=== PATIENT | male | born 1955 | race Caucasian/White ===

== ENCOUNTER → 2023-12-04 07:23 | Outpatient (REF) | payer MEDICARE, BC, SELFPAY | LOC: DHCBC/DCA 07:23 | PROVIDERS: ATTENDING PHYSICIAN Internal Medicine Cardiovascular Disease; FAMILY PHYSICIAN Family Medicine | DX: I49.3 Ventricular premature depolarization (principal); I10 Essential (primary) hypertension; E78.2 Mixed hyperlipidemia; R94.31 Abnormal electrocardiogram [ECG] [EKG] | CPT/HCPCS: 78452; 93017; A9500; J2785 ==

== ENCOUNTER → 2025-02-07 13:47 | Outpatient (REF) | payer MEDICARE, BC, SELFPAY | LOC: RCS 13:47 | PROVIDERS: ATTENDING PHYSICIAN Internal Medicine Cardiovascular Disease; FAMILY PHYSICIAN Family Medicine | DX: I49.3 Ventricular premature depolarization (principal) | CPT/HCPCS: 93306 ==

== ENCOUNTER 2025-02-16 01:27 | Inpatient (IN) | payer MEDICARE, BC, SELFPAY ==
[2025-02-15 20:28] VITALS: BP 119/69
[2025-02-15] MEDS: TYLENOL 1000 MG PO (21:03)
[2025-02-15 21:11] LABS: Hematocrit 47.5 % (39.0-52.0); Hemoglobin 15.8 g/dL (13.0-18.0); Mean Corp Hgb Conc. 33.3 g/dL (33.0-37.0); Mean Corpuscular Volume 89.0 fL (80.0-94.0); Platelet Count 219 10^3/uL (130-400); Red Cell Dist. Width 13.5 % (11.5-14.5)
[2025-02-15 21:20] LABS: Urine Character Clear (Clear)
[2025-02-15 21:25] LABS: COVID-19 Antigen Negative (Negative)
[2025-02-15 21:27] LABS: Urine Red Blood Cell 0-2 /HPF (0-2); Urine Squamous Cell 0-2 /LPF (Few); Urine White Cell 16-20 /HPF (0-5)
[2025-02-15 21:28] LABS: ALT (SGPT) 27 U/L (0-50); AST (SGOT) 23 U/L (17-59); Albumin 4.5 g/dl (3.5-5.0); Alkaline Phosphatase 67 U/L (38-126); Blood Urea Nitrogen 15 mg/dl (9-20); Calcium 9.4 mg/dl (8.4-10.2); Carbon Dioxide 21 mmol/L (22-30); Chloride 103 mmol/L (98-107); Glucose 246 mg/dl (70-99); Potassium 4.5 mmol/L (3.5-5.1); Sodium 136 mmol/L (135-145); Total Protein 7.2 g/dl (6.3-8.2); eGFR > 60.00
[2025-02-15 21:44] LABS: Nucleated Red Blood Cells % 0 % (-)
[2025-02-15 22:23] VITALS: BP 118/62
[2025-02-15] MEDS: ROCEPHIN 2000 MG IV (22:40)
[2025-02-15 22:44] VITALS: BMI 25.8
[2025-02-15 23:00] VITALS: BP 107/59
--- NOTE | 2025-02-15 23:33 | ED.GENMED ---
History of Present Illness
General
Chief Complaint: Fatigue
Source: patient
Time Seen by Provider: 02/15/25 22:16
Nursing documentation reviewed up to this point in time: agreed with
History of Present Illness
History of Present Illness:
Note:
CHIEF COMPLAINT(S)
Chills, shakiness, frequent urination, and elevated body temperature.
HISTORY OF PRESENT ILLNESS
The patient is a 69-year-old male with a history of primary biliary cholangitis (PBC) and diabetes mellitus who presented with sudden onset chills and shivering. The symptoms began this afternoon after the patient awoke from a nap feeling very cold,
despite applying blankets. Additionally, the patient reported shakiness, unsteadiness while walking, and a newly developed urinary frequency with an inability to control urination. The patient indicated a lack of fever prior to arrival in the
emergency department, where a fever of 102.6�F was recorded and treated with acetaminophen. The patient�s daughter, an emergency physician, expressed concern about the possibility of a cardiac-related issue due to these symptoms. The patient also
experienced an unusual elevation in blood glucose levels despite not having eaten since the morning.
Upon further evaluation, a diagnosis of a urinary tract infection was suspected, supported by the presence of bacteremia indicated by a threefold increase in the white blood cell count. The patient denied the use of steroids and had no history of
urinary tract infections, although reports of blood presence in the urine were confirmed today. The patient takes insulin for diabetes management. Concerns of progressing to sepsis were raised. The patient is scheduled for evaluations of the
bladder, liver, and kidneys, including imaging and possible cystoscopy in the coming days. Diagnostic imaging to rule out nephrolithiasis was planned.
PAST MEDICAL AND SURGICAL HISTORY
Primary biliary cholangitis (PBC), diabetes mellitus, enlarged prostate.
ADDITIONAL HISTORY OBTAINED FROM SOURCE OTHER THAN THE PATIENT
Per the patients daughter, an emergency physician, there was initial concern about the symptoms being cardiac-related and the risk of the patient becoming septic. She advised calling emergency medical services to prevent potential falls.
CHRONIC MEDICAL CONDITIONS SIGNIFICANTLY AFFECTING CARE
- Primary biliary cholangitis (PBC)
- Diabetes mellitus
SOCIAL DETERMINANTS AFFECTING HEALTH
The patient receives support from a daughter who is an emergency physician, providing insights and recommendations regarding his health management. No additional social determinants impacting health were discussed.
ALLERGIES
The patient reported no known allergies.
MEDICATIONS
- Insulin for diabetes management.
REVIEW OF SYSTEMS
- General: Very tired this afternoon, chills, shaking.
- Genitourinary: Frequent urination and loss of bladder control.
- Endocrine: Elevated blood glucose today despite normal eating habits.
PHYSICAL EXAM
General: Alert, no acute distress.
Skin: Warm, dry.
Head: Normocephalic, atraumatic.
Neck: Supple, trachea midline.
Eye, ears, nose, mouth, and throat: Oral mucosa moist.
Cardiovascular: Normal peripheral perfusion, no edema.
Respiratory: Respirations are non-labored.
Gastrointestinal: Abdomen non-distended.
Back: Normal range of motion, normal alignment.
Musculoskeletal: Normal range of motion, normal strength.
Neurological: Alert and oriented to person, place, time, and situation. No focal neurological deficit observed.
Psychiatric: Cooperative, appropriate mood & affect.
PROBLEM LIST
- Acute: Urinary tract infection with bacteremia, possible progressing sepsis.
- Chronic: Primary biliary cholangitis, diabetes mellitus.
PLAN
- Initiate intravenous antibiotics.
- Admit for overnight observation to monitor vital signs and response to treatment.
- Conduct a CT scan of the abdomen to evaluate for possible nephrolithiasis.
- Monitor blood pressure and blood glucose levels closely.
- The patient should refrain from taking PBC medication tonight, with management continuing based on hospital protocols.
- Ensure continuation of insulin therapy during the hospital stay.
DIFFERENTIAL DIAGNOSIS
The Differential Diagnosis includes, in no particular order and is not limited to:
1. Urinary tract infection with bacteremia
2. Nephrolithiasis
3. Sepsis
4. Pyelonephritis
5. Prostatitis
6. Diabetes-related complications
7. Drug-induced fever
8. Viral infection
9. Acute kidney injury
10. Heart failure exacerbation
Disposition:
SUMMARY OF ENCOUNTER
The patient, a 69-year-old male, presented with symptoms of chills, shakiness, frequent urination, and elevated body temperature. The chief concern was the potential development of sepsis. Upon evaluation, the laboratory findings revealed
leukocytosis with a white blood cell count of 28,000, indicating possible bacteremia. A CT scan confirmed cystitis and severe prostatitis. Given these findings, the patient was started on ceftriaxone due to suspected urosepsis.
DISPOSITION
Admit
ASSESSMENT
The patient is suspected to have urosepsis secondary to cystitis and severe prostatitis, as indicated by the CT scan and laboratory findings.
EMERGENCY TREATMENTS ADMINISTERED
The patient was started on intravenous ceftriaxone.
MANAGEMENT OF THE PATIENTS CARE WAS DISCUSSED WITH
The hospitalist was informed of the patient�s condition, diagnosis, and the plan for admission.
PLAN
The patient is to be admitted for urosepsis management, initiate intravenous antibiotic therapy, and closely monitor vital signs and laboratory parameters.
INDEPENDENT REVIEW OF LABS AND INTERPRETATION OF TESTS
My independent review of the CBC indicates leukocytosis with a white blood cell count of 28,000.
My independent interpretation of the CT scan confirms cystitis and severe prostatitis.
MEDICATION RECONCILIATION
Ceftriaxone (Rocephin) was initiated in the emergency department.
MEDICAL DECISION MAKING
- Number and Complexity of Problems Addressed: Chronic conditions affecting care include primary biliary cholangitis, diabetes mellitus. Differential diagnoses considered include urinary tract infection with bacteremia, nephrolithiasis, sepsis,
pyelonephritis, prostatitis, diabetes-related complications.
- Data:
Category 1:
Clinical information obtained from an independent historian, with details provided by the patients daughter, an emergency physician.
Category 2:
My independent interpretation of the CT scan confirms cystitis and severe prostatitis.
Category 3:
Discussion of management with the hospitalist regarding the patients admission for urosepsis.
- Risk: The decision to admit the patient was made considering the risk of complications from urosepsis including possible sepsis, given the leukocytosis and CT findings.
DIAGNOSIS
- Urosepsis [ICD-10: A41.9]
- Cystitis [ICD-10: N30.00]
- Prostatitis [ICD-10: N41.9]
Past History
Past History
ED Past Medical History: Psychiatric (Depression) and Other (Psoriasis)
ED Past Surgical History: None
Social History
Tobacco: Non-smoker
Personal: Single
Living: with family
Employment: Student
Phy Exam
Physical Exam
Physical Exam:
.
Sepsis
Sepsis Screening
Sepsis Assessment: Sepsis
Sepsis Screen
Sepsis Screen: Sepsis
Date: 02/16/25
Time: 22:53
Course
Orders/Labs/Results
Orders:
Orders
02/15/25 20:34
Electrocardiogram (*1) Urgent
Reason for Study: Fatigue / Weakness
02/15/25 20:35
EKG- Treatment ONCE
02/15/25 20:55
COVID-19 Antigen Urgent
Source: Nasal Swab
Complete Blood Count/With Diff Urgent
Comprehensive Metabolic Panel Urgent
Lactic Acid Urgent
Urinalysis Reflex To Culture Urgent
Date Specimen was Collected: 02/15/25
Time Specimen was Collected: 20:35
Urine Microscopic Reflex Cult Urgent
Blood Culture Urgent
BENJAMIN Source: Blood/Venous
Specimen Description:
Influenza A+B Rapid Molecular Urgent
BENJAMIN Source: Nasal Swab
Specimen Description:
Date Specimen was Collected: 02/15/25
Time Specimen was Collected: 20:35
Urine Culture Urgent
BENJAMIN Source: U
Specimen Description:
Date Specimen was Collected: 02/15/25
Time Specimen was Collected: 20:35
02/15/25 21:01
Acetaminophen [Tylenol] 1,000 mg .ROUTE .STK-MED ONE
02/15/25 21:03
Acetaminophen [Tylenol] 1,000 mg PO NOW STA
02/15/25 22:29
CT Abd/pel Without Iv Or Oral Urgent
Comment:
Reason For Exam: hematuria, fever, elev wbc
CefTRIAXone [Rocephin] 2,000 mg IV NOW STA
02/15/25 23:45
Lactic Acid Q4H
Comment: CANCEL 2nd LACTIC ACID IF 1st LACTIC ACID IS LESS THAN 2
02/16/25 01:08
0.9% Sodium Chloride 1000 ml [Nss] 1,000 ml IV BOLUS
0.9% Sodium Chloride 250 ml [Nss] 250 ml IV BOLUS
02/16/25 01:11
Admit/Transfer Patient As Directed
Co-Sign Provider:
Level of Care: Inpatient admission
Assign to:: Medical/Surgical
Physician / Group: Michel
Diagnosis: urosepsis
Reason for Hospitalization: urosepsis
Expected length of stay greater than two midnights?: Yes
ELOS- Estimated Length of Stay in days: 2
I certify the patient meets the requirements for IP care: Yes
PRN Pain Medication Management As Directed
May give lesser potent ordered pain med per pt: Yes
preference::
Protocol:: Medication orders for pain may be administered in a
manner that supports deferring to patient preference
when the pt is:
- Requesting an ordered lesser potent pain medication.
Least to most potent pain medications are defined
as: acetaminophen < NSAID < tramadol < opioids
(morphine, oxycodone, hydromorphone).
- Requesting a lesser dose of the same medication IF
ORDERED.
- Requesting a less intrusive route of administration
if both routes are prescribed by the provider (PO <
IV).
02/16/25 01:12
Code Status As Directed
Resuscitation Status: Full Code
02/16/25 02:00
Flush (0.9% Sodium Chloride) [Flush (Nss)] See Dose Instructions IV PER PROTOCOL
02/16/25 04:23
Acetaminophen [Tylenol] 650 mg PO Q4HPRN PRN
Bisacodyl [Dulcolax] 10 mg RECTAL [id number] PRN
Dextrose 50%-Water [Dextrose 50% Syringe] 12.5 grams IV [id number] PRN
Docusate W/Senna [Senokot-S] 1 tablet PO BIDPRN PRN
Glucagon [GlucaGen] 1 mg IM PRN PRN
HYDROmorphone [Dilaudid] 0.5 mg IV Q4HPRN PRN
Polyethylene Glycol Powder [Miralax] 17 grams PO DAILYPRN PRN
02/16/25 04:23
Activity As Directed
Activity Level: With Assistance
Bedside Glucose Monitoring As Directed
Frequency: AC&HS
Additional Instructions:: Change to q6h if pt on TPN, tube feeding or not eating
Vital Signs As Directed
Frequency: Per unit guidelines
Pulse Ox/spot Check [RESP] Routine
Quantity: 1
DX Deep Vein Thrombosis Video Routine
02/16/25 Breakfast
1800 calorie (15 carb) Diabetic
At Your Request: Full Participation
Levothyroxine [Synthroid] 175 mcg PO DAILY @ 0600
02/16/25 06:22
Basic Metabolic Panel IN AM
Complete Blood Count/No Diff IN AM
02/16/25 07:30
Insulin Aspart Corrective Low [Novolog Flexpen-Low Resistance] See Protocol SC AC
02/16/25 08:00
Atorvastatin [Lipitor] 10 mg PO DAILY
Dapagliflozin [Farxiga] 10 mg PO DAILY
Diltiazem Sustained Release [Cardizem Sr] 120 mg PO BID
Duloxetine Delayed Release [Cymbalta Delayed Release] 60 mg PO DAILY
Flecainide [Tambocor] 150 mg PO BID
Insulin Aspart/Asp Protamine [Novolog Mix 70/30 Flexpen] 7 units SC BID@0800,1700
02/16/25 18:00
Enoxaparin Sodium [Lovenox] 40 mg SC QPM
02/16/25 22:00
CefTRIAXone [Rocephin] 2,000 mg IV Q24H
Abnormal Lab Results
02/15/25
20:55
WBC 28.1 H 10^3/uL
(4.8-10.8)
MPV 11.1 H fL
(7.4-10.4)
Abs Immat Gran (auto) 0.3 H 10^3/uL
(0-0.05)
Absolute Neuts (auto) 25.4 H 10^3/uL
(1.4-6.5)
Absolute Lymphs (auto) 0.5 L 10^3/uL
(1.2-3.4)
Absolute Monos (auto) 1.9 H 10^3/uL
(0.1-0.6)
Immature Gran % 1.0 H %
(0-0.5)
Neutrophils % 90.5 H %
(42.2-75.2)
Lymphocytes % 1.6 L %
(20.5-51.1)
Carbon Dioxide 21 L mmol/L
(22-30)
Glucose 246 H mg/dl
(70-99)
Urine Ketones 3+ A
(Negative)
Leukocyte Esterase Rfl 2+ A
(Negative)
Urine WBC (Reflex) 16-20 A /HPF
(0-5)
Urine Bacteria (Reflex) Moderate A
(Negative)
Urine Glucose 4+ A
(Negative)
Urine Albumin (Reflex) 1+ A
(Neg - Trace)
02/15/25 20:55
02/15/25 20:55
Vital Signs
Initial and Last Documented VS:
Initial Vital Signs
Temp Pulse Resp BP Pulse Ox
102.6 F H 112 22 119/69 95
02/15/25 20:28 02/15/25 20:28 02/15/25 20:28 02/15/25 20:28 02/15/25 20:28
Last Documented Vital Signs
Temp Pulse Resp BP Pulse Ox
98.9 F 89 18 121/70 99
02/16/25 15:15 02/16/25 15:15 02/16/25 15:15 02/16/25 15:15 02/16/25 15:15
*Pulse Oximetry
SaO2: 95
Oxygen Mode of Delivery: Room air
Patient hypoxic: no
*Critical Care Note
Total Time (30-74mins, 75-104mins- exclusive of procedures): Not Applicable
ED Attending Note
-
Portions of this chart may have been created with voice recognition software.� Occasional wrong word or��sound alike� substitutions may have occurred due to the inherent limitations of voice recognition software.
Discharge Plan
Departure
Patient Disposition: Admit
Date of Disposition: 02/15/25
Time of Disposition: 23:34
Presentation/result/management discussed w/ accepting MD/DO: Hospitalist
Discharge Problem:
urosepsis
Interventions
Interventions:
*Risk Screen - Suicide Last Done: 02/16/25 09:43
*General Assessment Last Done: 02/15/25 20:32
*Neglect/Abuse Screening Last Done: 02/15/25 22:33
*ED- Fall Risk Assessment Last Done: 02/16/25 01:15
*ED COVID-19 Vaccine History Last Done: 02/16/25 09:43
*ED Influenza Vaccine History Last Done: 02/15/25 20:32
*Nursing Disposition Last Done: 02/16/25 07:58
Discharge Date and Time
Discharge Date/Time: 02/16/25 07:58
[2025-02-16] VITALS (7 sets, daily range): BP systolic 115–128; BP diastolic 62–70; BMI 25.7
--- NOTE | 2025-02-16 00:40 | HPS.HSE ---
Family Physician
-
Family Physician: Emil Brown
Chief Complaint
-
Weakness
History of Present Illness
69-year-old male with past medical history of primary biliary cholangitis, diabetes and BPH. Presenting to the emergency department with rigors and chills that began suddenly.
Apparently arose this a.m. with feeling cold despite the application of blankets. He reported shakiness and unsteadiness with walking. He then developed urinary frequency and some incontinence. He did not measure his temperature prior to arrival
in the emergency department but did not feel he had a fever. He has persistently elevated blood glucoses despite not eating in AM.
In the emergency department he had a temp of one 2.6, blood pressure was 124/62 with a pulse of 88 and was satting 97% on room air.
ECG shows sinus tachycardia at 101.
White count was 28 with a left shift, hemoglobin and platelets were normal. Lactic acid was 1.6. Electrolytes were normal. BUN/creatinine were normal. Glucose was 240.
COVID test was negative. Influenza test was negative.
UA was markedly positive for leukocyte esterase bacteria and WBCs. CT of the abdomen showed acute cystitis and severe prostate enlargement.
Medical History
Past Medical History
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
Past Surgical History: Reports Other (Skin resection for melanoma 1 year ago)
Social History
Tobacco: Non-smoker
Alcohol: Occasional
Drug: None
Personal:
Living: With Family
Employment: Retired
Family History
Family History: Not pertinent
Allergies / Home Medications
Allergies reflects when Allergies were last updated in [employer].
Home Medications with original date entered in [employer]
Allergy/Medication List:
Allergies
Allergy/AdvReac Type Severity Reaction Status Date / Time
No Known Allergies Allergy Verified 02/15/25 20:34
Home Medications
atorvastatin 10 mg tablet 10 mg PO DAILY 02/16/25
dapagliflozin propanediol 10 mg tablet (Farxiga) 10 mg PO DAILY 02/16/25
diltiazem HCl 120 mg capsule,extended release 12 hr 120 mg PO BID 02/16/25
duloxetine 60 mg capsule,delayed release 60 mg PO DAILY 02/16/25
flecainide 100 mg tablet mg 02/16/25
flecainide 150 mg tablet 150 mg PO BID 02/16/25
insulin NPH isoph U-100 human 100 unit/mL subcutaneous suspension (Novolin N NPH U-100 Insulin isophane) unit SC 02/16/25
insulin aspart U-100 100 unit/mL subcutaneous solution 02/16/25
levothyroxine 175 mcg tablet (Synthroid) mcg 02/16/25
metformin 500 mg tablet 500 mg PO DAILY 02/16/25
tamsulosin 0.4 mg capsule 0.4 mg PO HS 02/16/25
Review of Systems
-
Constitutional: Reports Chills
EENT: Reports No Symptoms
Respiratory: Reports No Symptoms
Cardiac: Reports No Symptoms
Abdomen/GI: Reports No Symptoms
: Reports Dysuria, Frequency and Incontinence
Musculoskeletal: Reports No Symptoms
Skin: Reports No Symptoms
Neurological: Reports No Symptoms
Endocrine: Reports No Symptoms
Hematologic/Lymphatic: Reports No Symptoms
Psych: Reports No Symptoms
Physical Exam
Vital Signs
Vital Signs
Temp Pulse Resp BP Pulse Ox
102.6 F H 85 13 124/62 97
02/15/25 20:28 02/16/25 00:15 02/16/25 00:15 02/16/25 00:12 02/16/25 00:15
Physical Exam
General: Well Developed, Well Nourished and No Apparent Distress
HEENT: NormoCephalic, Moist mucous membranes and Atraumatic
Respiratory: Clear
Cardiac: S1/S2 and Regular Rhythm; No Murmur or Rub
GI: Soft, Non Tender, Non Distended and Normal Bowel Sounds; No Organomegaly
Rectal: Deferred by Provider
Musculoskeletal: No Clubbing, No Cyanosis and No Edema
Skin: No Rash
Neuro: Nonfocal/grossly intact
Laboratory Results
-
02/15/25 20:55
02/15/25 20:55
Laboratory Results
Lactic Acid 1.6 mmol/L (0.7-2.0) 02/15/25 20:55
Total Bilirubin 0.9 mg/dl (0.2-1.3) 02/15/25 20:55
AST 23 U/L (17-59) 02/15/25 20:55
ALT 27 U/L (0-50) 02/15/25 20:55
Alkaline Phosphatase 67 U/L (38-126) 02/15/25 20:55
Data Reviewed
-
CT Scan: Report Reviewed by me
Medical Tests (Nuc Med, Echo, EKG etc): Image Personally Visualized and interpreted
Lab Data: Labs Reviewed by me
Impression/Plan
-
IMPRESSION:
69-year-old with a history of BPH, PVCs, hyperlipidemia, insulin-dependent diabetes presents to the emergency department with chills rigors urinary frequency and fever and found to have positive urinalysis. Febrile here with leukocytosis to 28. CT
consistent with acute cystitis and prostatomegaly, no nephrolithiasis, no obstruction. Reports despite history of BPH patient has not been started on tamsulosin pending severity of symptoms which for now reported to be mild. He does have
tamsulosin but is not currently taking it. In the ED he was febrile podiatry minimal dynamically stable. Lactic acid is negative. Other infectious workup was negative.
PLAN:
Acute cystitis with sepsis. HD stable.
- admit to med/surg
-Blood and urine culture sent
-Will bolus with crystalloids 30 cc per cake now
-Continue IV ceftriaxone 2 g for now
- Monitor hemodynamics
-Hold parameters on antihypertensives.
PVCs
-Continue diltiazem 120 mg p.o. twice daily with hold parameters
-Continue flecainide 150 mg p.o. twice daily
Diabetes
-Hold metformin
-Continue insulin 70/30 mixture at 10 units twice daily AC
-Sliding scale insulin
Hypothyroid
-Continue levothyroxine 175 mcg's daily
DVT prophylaxis�Lovenox subcu
CODE STATUS�full code
[2025-02-16] MEDS: NSS 250 IV (01:15)
[2025-02-16] MEDS: NSS 1000 IV (01:15)
[2025-02-16] MEDS: SYNTHROID 175 MCG PO (06:17)
[2025-02-16 06:36] LABS: Hematocrit 40.1 % (39.0-52.0); Hemoglobin 13.6 g/dL (13.0-18.0); Mean Corp Hgb Conc. 33.9 g/dL (33.0-37.0); Mean Corpuscular Volume 87.6 fL (80.0-94.0); Platelet Count 141 10^3/uL (130-400); Red Cell Dist. Width 13.4 % (11.5-14.5)
--- NOTE | 2025-02-16 07:10 | W.PN.HOSP.TC ---
Today's Communication/Plan
-
Doing better
Continue antibiotics, AM labs, follow cultures, added Finasteride, Bladder Scans
See plan
Assessment / Plan
Assessment / Plan
Physical Exam
General: Well Developed, Well Nourished and No Apparent Distress
HEENT: NormoCephalic, Moist mucous membranes and Atraumatic
Respiratory: Clear
Cardiac: S1/S2 and Regular Rhythm; No Murmur or Rub
GI: Soft, Non Tender, Non Distended and Normal Bowel Sounds; No Organomegaly
Rectal: Deferred by Provider
Musculoskeletal: No Clubbing, No Cyanosis and No Edema
Skin: No Rash
Neuro: Nonfocal/grossly intact
Assessment/Plan
69-year-old male with past medical history of primary biliary cholangitis, diabetes and BPH, presented to the emergency department with rigors and chills that began suddenly. Also reported urinary frequency and some incontinence. He did not measure
his temperature prior to arrival in the emergency department but did not feel he had a fever. He has persistently elevated blood glucoses despite not eating in AM.
UA was markedly positive for leukocyte esterase bacteria and WBCs. CT of the abdomen showed acute cystitis and severe prostate enlargement.
Presentation with Significant Chills, Urinary Frequency and Urinary Incontinence
Acute cystitis with sepsis
Leukocytosis
-Was not taking Flomax outpatient despite BPH?
-Follow blood and urine cultures
-Continue IV ceftriaxone 2 g daily for now
History of BPH
-Sees Dr. Rosen outpatient
-Start Finasteride as per my curbside discussion with Dr. Rosen
PVCs
-Continue diltiazem 120 mg p.o. twice daily with hold parameters
-Continue flecainide 150 mg p.o. twice daily
Diabetes Mellitus
-Hold metformin
-Continue insulin 70/30 mixture at 10 units twice daily AC
-Sliding scale insulin
Hypothyroid
-Continue levothyroxine 175 mcg's daily
Hyperlipidemia
DVT Prophylaxis�Lovenox subq
CODE STATUS�full code
Anticipated Discharge: 24 - 48 hours
Subjective/Interval History
-
Date of Service: February 16, 2025
Patient was seen and examined. He reported doing better this morning, compared to when he came in. No fever.
Objective Data
-
Labs:
Laboratory Results
02/15/25 02/16/25
20:55 06:22
WBC 28.1 H 26.5 H
Hgb 15.8 13.6
Hct 47.5 40.1
Plt Count 219 141 D
Sodium 136 Pending
Potassium 4.5 Pending
Chloride 103 Pending
Carbon Dioxide 21 L Pending
BUN 15 Pending
Creatinine 1.0 Pending
Glucose 246 H Pending
Calcium 9.4 Pending
Total Bilirubin 0.9
AST 23
ALT 27
Alkaline Phosphatase 67
Vital Signs:
Vital Signs
Temp Pulse Resp BP Pulse Ox
102.6 F H 84 10 128/62 96
02/15/25 20:28 02/16/25 01:15 02/16/25 01:15 02/16/25 01:12 02/16/25 01:15
--- NOTE | 2025-02-16 07:21 | EDRN ---
this RN completed the pts medication reconciliation with the pt
[2025-02-16 07:35] LABS: Blood Urea Nitrogen 15 mg/dl (9-20); Calcium 8.6 mg/dl (8.4-10.2); Carbon Dioxide 22 mmol/L (22-30); Chloride 108 mmol/L (98-107); Estimated Creatinine Clearance 94 ml/min; Glucose 166 mg/dl (70-99); Sodium 137 mmol/L (135-145); eGFR > 60.00
[2025-02-16 08:38] LABS: Glucose - Point of Care 171 mg/dl (70-99)
[2025-02-16] MEDS: CYMBALTA DELAYED RELEASE 60 MG PO (09:39)
[2025-02-16] MEDS: CARDIZEM SR 120 MG PO ×2 (09:39→20:40)
[2025-02-16] MEDS: FARXIGA 10 MG PO (09:39)
[2025-02-16] MEDS: NOVOLOG FLEXPEN-LOW RESISTANCE 1 UNITS SC ×3 (09:40→17:28)
[2025-02-16] MEDS: LIPITOR 10 MG PO (10:33)
[2025-02-16] MEDS: TAMBOCOR 150 MG PO ×2 (10:34→21:03)
[2025-02-16] MEDS: NOVOLOG MIX 70/30 FLEXPEN 7 UNITS SC ×2 (10:34→17:28)
[2025-02-16 11:17] LABS: Potassium 4.0 mmol/L (3.5-5.1)
[2025-02-16 12:00] LABS: Glucose - Point of Care 157 mg/dl (70-99)
--- NOTE | 2025-02-16 15:44 | CM ---
Lives with and 24 y/o son in a 2 story home plus basement and attic, B/B on 2nd, 1/2 bath on 1st, 3 steps to enter. 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 Has a CPAP and does use. No in-home services. Discharge POC: Anticipate
home with no needs.
[2025-02-16] MEDS: PROSCAR 5 MG PO (15:55)
[2025-02-16 17:28] LABS: Glucose - Point of Care 186 mg/dl (70-99)
[2025-02-16] MEDS: LOVENOX 40 MG SC (17:29)
[2025-02-16] MEDS: STERILE WATER FOR INJECTION 20 ML IV (21:37)
[2025-02-16] MEDS: ROCEPHIN 2000 MG IV (21:37)
[2025-02-16 21:59] LABS: Glucose - Point of Care 155 mg/dl (70-99)
[2025-02-17 03:00] VITALS: BP 116/65
[2025-02-17] MEDS: SYNTHROID 175 MCG PO (05:10)
[2025-02-17 07:22] VITALS: BP 110/50
[2025-02-17 07:28] LABS: Glucose - Point of Care 116 mg/dl (70-99)
[2025-02-17] MEDS: NOVOLOG FLEXPEN-LOW RESISTANCE SC ×2 (07:37→11:28)
--- NOTE | 2025-02-17 07:57 | W.PN.HOSP.TC ---
Today's Communication/Plan
-
cont Ceftriaxone
follow up E. coli sensitivities
Assessment / Plan
Assessment / Plan
Physical Exam
General: Well Developed, Well Nourished and No Apparent Distress
HEENT: NormoCephalic, Moist mucous membranes and Atraumatic
Respiratory: Clear
Cardiac: S1/S2 and Regular Rhythm; No Murmur or Rub
GI: Soft, Non Tender, Non Distended and Normal Bowel Sounds; No Organomegaly
Rectal: Deferred by Provider
Musculoskeletal: No Clubbing, No Cyanosis and No Edema
Skin: No Rash
Neuro: Nonfocal/grossly intact
Assessment/Plan
69-year-old male with past medical history of primary biliary cholangitis, diabetes and BPH, presented to the emergency department with rigors and chills that began suddenly. Also reported urinary frequency and some incontinence. He did not measure
his temperature prior to arrival in the emergency department but did not feel he had a fever. He has persistently elevated blood glucoses despite not eating in AM.
UA was markedly positive for leukocyte esterase bacteria and WBCs. CT of the abdomen showed acute cystitis and severe prostate enlargement.
Presentation with Significant Chills, Urinary Frequency and Urinary Incontinence
Acute cystitis with sepsis
Leukocytosis
-Was not taking Flomax outpatient despite BPH?
-Follow blood and urine cultures
-Continue IV ceftriaxone 2 g daily for now
-Urine cx pos for E coli follow up sensitivity
History of BPH
-Sees Dr. Rosen outpatient
-Started on Finasteride
PVCs
-Continue diltiazem 120 mg p.o. twice daily with hold parameters
-Continue flecainide 150 mg p.o. twice daily
Diabetes Mellitus
-Hold metformin
-Continue insulin 70/30 mixture at 10 units twice daily AC
-Sliding scale insulin
Hypothyroid
-Continue levothyroxine 175 mcg's daily
Hyperlipidemia
DVT Prophylaxis�Lovenox subq
CODE STATUS�full code
Discussed with patient and patient's Lynette
I spent a total of 40 minutes with the patient or on the floor. More than 50% of this time involved counseling and coordination of care.
Anticipated Discharge: 24 - 48 hours
Subjective/Interval History
-
Date of Service: February 17, 2025
Seen and examined at bedside, in no acute distress, resting comfortably in bed. Overall reports feeling well, denies new acute issues at this time.
Objective Data
-
Labs:
Laboratory Results
02/17/25
07:44
WBC Pending
Hgb Pending
Hct Pending
Plt Count Pending
Sodium Pending
Potassium Pending
Chloride Pending
Carbon Dioxide Pending
BUN Pending
Creatinine Pending
Glucose Pending
Calcium Pending
Vital Signs:
Vital Signs
Temp Pulse Resp BP Pulse Ox
98.6 F 80 16 110/50 96
02/17/25 07:22 02/17/25 07:22 02/17/25 07:22 02/17/25 07:22 02/17/25 07:22
I&O
02/16/25 02/17/25 02/18/25
06:59 06:59 06:59
Intake Total 720 / 720
Balance 720 / 720
[2025-02-17] MEDS: CYMBALTA DELAYED RELEASE 60 MG PO (08:24)
[2025-02-17] MEDS: CARDIZEM SR 120 MG PO ×2 (08:25→20:18)
[2025-02-17] MEDS: FARXIGA 10 MG PO (08:25)
[2025-02-17] MEDS: TAMBOCOR 150 MG PO ×2 (08:25→20:18)
[2025-02-17] MEDS: LIPITOR 10 MG PO (08:25)
[2025-02-17] MEDS: NOVOLOG MIX 70/30 FLEXPEN 7 UNITS SC ×2 (08:30→17:19)
[2025-02-17] MEDS: PROSCAR 5 MG PO (08:31)
[2025-02-17 08:49] LABS: Hematocrit 37.4 % (39.0-52.0); Hemoglobin 12.8 g/dL (13.0-18.0); Mean Corp Hgb Conc. 34.2 g/dL (33.0-37.0); Mean Corpuscular Volume 89.5 fL (80.0-94.0); Nucleated Red Blood Cells % 0 % (-); Platelet Count 120 10^3/uL (130-400); Red Cell Dist. Width 13.5 % (11.5-14.5)
[2025-02-17 09:35] LABS: Blood Urea Nitrogen 17 mg/dl (9-20); Calcium 8.4 mg/dl (8.4-10.2); Carbon Dioxide 18 mmol/L (22-30); Chloride 105 mmol/L (98-107); Estimated Creatinine Clearance 84 ml/min; Glucose 110 mg/dl (70-99); Potassium 4.0 mmol/L (3.5-5.1); Sodium 135 mmol/L (135-145); eGFR > 60.00
[2025-02-17 11:00] VITALS: BP 110/61
[2025-02-17 11:25] LABS: Glucose - Point of Care 126 mg/dl (70-99)
[2025-02-17] MEDS: FLORASTOR 250 MG PO ×2 (13:02→20:19)
[2025-02-17 13:55] LABS: Glucose - Point of Care 259 mg/dl (70-99)
[2025-02-17 15:00] VITALS: BP 130/71
[2025-02-17 16:53] LABS: Glucose - Point of Care 168 mg/dl (70-99)
[2025-02-17] MEDS: LOVENOX 40 MG SC (17:20)
[2025-02-17] MEDS: NOVOLOG FLEXPEN-LOW RESISTANCE 1 UNITS SC (17:20)
--- NOTE | 2025-02-17 17:43 | CM ---
Met with pt bedside. Continues on IV abx. No anticipated d/c needs at this time
Plan: Home with no needs
[2025-02-17 19:00] VITALS: BP 110/72
[2025-02-17] MEDS: ROCEPHIN 2000 MG IV (21:11)
[2025-02-17] MEDS: STERILE WATER FOR INJECTION 20 ML IV (21:11)
[2025-02-17 21:12] LABS: Glucose - Point of Care 137 mg/dl (70-99)
[2025-02-17 23:02] VITALS: BP 123/68
[2025-02-18 03:00] VITALS: BP 124/68
[2025-02-18] MEDS: SYNTHROID 175 MCG PO (05:13)
[2025-02-18 07:43] VITALS: BP 119/70
--- NOTE | 2025-02-18 07:47 | W.PN.HOSP.TC ---
Today's Communication/Plan
-
Discharge
Assessment / Plan
Assessment / Plan
Physical Exam
General: No acute distress, appears comfortable at this time
HEENT: NormoCephalic, Moist mucous membranes and Atraumatic
Respiratory: Clear
Cardiac: S1/S2 and Regular Rhythm; No Murmur or Rub
GI: Soft, Non Tender, Non Distended and Normal Bowel Sounds; No Organomegaly
Musculoskeletal: No Clubbing, No Cyanosis and No Edema
Skin: No Rash
Neuro: AOx3 conversant coherent
Psych: Calm
Assessment/Plan
69M history of primary biliary cholangitis, diabetes and BPH, presented to the emergency department with rigors and chills that began suddenly. Also reported urinary frequency and some incontinence. He had persistently elevated blood glucoses
despite not eating in AM. UA was markedly positive for leukocyte esterase bacteria and WBCs. CT of the abdomen showed acute cystitis and severe prostate enlargement.
Acute cystitis with sepsis
Leukocytosis resolving
-Was not taking Flomax outpatient despite BPH?
-Follow blood and urine cultures
-Urine cx pos for E coli follow up sensitivity
-Significantly improved on empiric ceftriaxone transitioned to Augmentin 02/18, planned for total 10 days abx tx 02/15/25-02/24/25
History of BPH
-Sees Dr. Rosen outpatient
-Started on Finasteride, cont
PVCs
-Continue diltiazem 120 mg p.o. twice daily with hold parameters
-Continue flecainide 150 mg p.o. twice daily
Diabetes Mellitus
-Metformin resumed
-Continue insulin 70/30 mixture at 10 units twice daily AC
-Sliding scale insulin
-Farxiga initially resumed but since placed on hold d/t concerns increased risk UTI and urinary frequency, though this is patient's first UTI and patient has been on Farxiga for many years, recommend follow up with primary care provider or
Endocrinology to determine when safe to resume.
Hypothyroid
-Continue levothyroxine 175 mcg's daily
Hyperlipidemia
DVT Prophylaxis�Lovenox subq
CODE STATUS�full code
Medically stable for discharge home with outpatient follow up recommendations.
Discussed with patient and patient's Lynette
Total Time Preparing Discharge ___40____ minutes including examination of the patient, summary of the hospital stay, instructions for continuing care to all relevant caregivers; and preparation of discharge records, prescriptions, and referral
forms if necessary.
Anticipated Discharge: Today
Subjective/Interval History
-
Date of Service: February 18, 2025
Seen and examined at bedside in acute distress, sitting up comfortably in bed. Overall reports feeling well. Denies new acute issues at this time, eager to go home.
Objective Data
-
Labs:
Laboratory Results
02/18/25
06:50
WBC Pending
Hgb Pending
Hct Pending
Plt Count Pending
Sodium Pending
Potassium Pending
Chloride Pending
Carbon Dioxide Pending
BUN Pending
Creatinine Pending
Glucose Pending
Calcium Pending
Vital Signs:
Vital Signs
Temp Pulse Resp BP Pulse Ox
98.8 F 81 12 124/68 98
02/18/25 03:00 02/18/25 03:00 02/18/25 03:00 02/18/25 03:00 02/18/25 03:00
I&O
02/17/25 02/18/25 02/19/25
06:59 06:59 06:59
Intake Total 720 / 720
Balance 720 / 720
[2025-02-18 08:00] LABS: Hematocrit 39.4 % (39.0-52.0); Hemoglobin 12.7 g/dL (13.0-18.0); Mean Corp Hgb Conc. 32.2 g/dL (33.0-37.0); Mean Corpuscular Volume 89.7 fL (80.0-94.0); Nucleated Red Blood Cells % 0 % (-); Platelet Count 120 10^3/uL (130-400); Red Cell Dist. Width 13.3 % (11.5-14.5)
[2025-02-18 08:14] LABS: Blood Urea Nitrogen 17 mg/dl (9-20); Calcium 8.1 mg/dl (8.4-10.2); Carbon Dioxide 18 mmol/L (22-30); Chloride 107 mmol/L (98-107); Estimated Creatinine Clearance 108 ml/min; Glucose 130 mg/dl (70-99); Potassium 3.7 mmol/L (3.5-5.1); Sodium 136 mmol/L (135-145); eGFR > 60.00
[2025-02-18 08:23] LABS: Glucose - Point of Care 127 mg/dl (70-99)
[2025-02-18] MEDS: NOVOLOG FLEXPEN-LOW RESISTANCE SC (08:48)
[2025-02-18] MEDS: FARXIGA 10 MG PO (08:51)
[2025-02-18] MEDS: CYMBALTA DELAYED RELEASE 60 MG PO (08:51)
[2025-02-18] MEDS: LIPITOR 10 MG PO (08:51)
[2025-02-18] MEDS: TAMBOCOR 150 MG PO (08:51)
[2025-02-18] MEDS: CARDIZEM SR 120 MG PO ×2 (08:52)
[2025-02-18] MEDS: NOVOLOG MIX 70/30 FLEXPEN 7 UNITS SC (08:52)
[2025-02-18] MEDS: FLORASTOR 250 MG PO (08:52)
[2025-02-18] MEDS: PROSCAR 5 MG PO (08:52)
[2025-02-18 09:05] LABS: Glycohemoglobin (HgbA1c) 7.9 % (4.0-5.6)
[2025-02-18 11:23] VITALS: BP 123/68
[2025-02-18 11:46] LABS: Glucose - Point of Care 186 mg/dl (70-99)
[2025-02-18] MEDS: NOVOLOG FLEXPEN-LOW RESISTANCE 1 UNITS SC (11:47)
--- NOTE | 2025-02-18 14:20 | W.DCSUMMARY ---
Discharge Summary
Discharge Data
Date of Admission: 02/16/25
Date of Discharge: 02/18/25
-
Pending Results: Yes
Additional Pending Results:
E. coli sensitivities
Discharge Plan
-
Patient Disposition: Home (Routine Discharge)
Discharge Diagnosis/Procedures: Acute cystitis with sepsis
Leukocytosis resolving
Severe Prostatomegaly
Diabetes Mellitus
Hypothyroid
Hyperlipidemia
Condition: Fair
Diet: Diabetic, Carb Controlled
Activity: As tolerated
Driving Restrictions: As prior to admission
Bathing Restrictions: None
Activity Restrictions/Additional Instructions:
Follow up with primary care provider in 1 week of discharge and Urology in 1-2 weeks of discharge. Endocrinology in 2 weeks of discharge.
Augmentin prescribed to complete treatment urinary tract infection. 02/24/25 last day for antibiotics.
Probiotic prescribed to promote gut health while on antibiotics. Probiotics are available over the counter. Ok to discontinue when off antibiotics.
Finasteride prescribed for prostatomegaly.
It is recommended that you hold Farxiga at this time due to concerns increased risk urinary tract infection and urinary frequency. Follow up with primary care provider and/or endocrinology to determine when safe to resume, if necessary to resume,
and/or if alternative agent is needed instead.
Please take medications as prescribed/recommended and follow up with primary care provider and/or other healthcare provider involved in your care for refills and/or further adjustment to your medication regimen as necessary.
Referrals:
Emil Brown MD [Family Provider, Family Practice] - in one week
James Rosen MD [Active, Urology] - in one to two weeks
Swapna Joyner MD [Consulting Staff, Endocrinology] - in two weeks
Prescriptions:
New
amoxicillin-pot clavulanate 875-125 mg Tablet
1 tab PO Q12 Qty: 13 0RF
Rx Instructions:
10/20/25 last day for antibiotics
Saccharomyces boulardii 250 mg Capsule
250 mg PO BID Qty: 13 0RF
Rx Instructions:
OK to stop when off antibiotics.
finasteride 5 mg Tablet
5 mg PO DAILY Qty: 30 0RF
Continued
metformin 500 mg tablet
500 mg PO DAILY
levothyroxine [Synthroid] 175 mcg tablet
175 mcg PO DAILY
flecainide 150 mg tablet
150 mg PO BID
atorvastatin 10 mg tablet
10 mg PO DAILY
diltiazem HCl 120 mg capsule,extended release 12 hr
120 mg PO BID
tamsulosin 0.4 mg capsule
0.4 mg PO HS
duloxetine 60 mg capsule,delayed release(DR/EC)
60 mg PO DAILY
Novolin N FlexPen 100 unit/mL (3 mL) Insulin Pen
10 unit SC BID
Rx Instructions:
in the morning before meals and at night before meals per the pt
insulin aspart U-100 [Novolog FlexPen U-100 Insulin] 100 unit/mL (3 mL) Insulin Pen
10 unit SC BID
Rx Instructions:
in morning before meals and at night before meals per the patient
Held
dapagliflozin propanediol [Farxiga] 10 mg tablet
10 mg PO DAILY
Hold Instructions: Held due to concerns increase risk urinary tract infections and urinary frequency. Follow up with primary care provider and/or endocrinology to determine when safe to resume, if necessary to resume, and/or if alternative agent
is needed instead.
Discharge Orders:
Discharge Patient (As Directed); Ordered 02/18/25
Ordered By: Laura Brandt
Discharge Date and Time
Print Language: TAIWANESE
[2025-02-18] MEDS: GLUCOPHAGE 500 MG PO (15:34)
[2025-02-18 15:36] VITALS: BP 131/63
[2025-02-18] MEDS: AUGMENTIN 875 MG/125 MG 1 TABLET PO (15:38)
== END 2025-02-18 16:15 | disposition home or self-care (01) | DRG 872 ==
LOC: 4 EAST ACU 01:27
PROVIDERS: Emergency Medicine; Hospitalist; ADMITTING PHYSICIAN Internal Medicine; ATTENDING PHYSICIAN Internal Medicine; EMERGENCY PHYSICIAN Student in an Organized Health Care Education/Training Program; FAMILY PHYSICIAN Family Medicine
PROC: 5A09357 Assistance with Respiratory Ventilation, Less than 24 Consecutive Hours, Continuous Positive Airway Pressure (ICD-10-PCS; 2025-02-17)
DX: A41.51 Sepsis due to Escherichia coli [E. coli] (principal); E11.9 Type 2 diabetes mellitus without complications; K74.3 Primary biliary cirrhosis; N41.3 Prostatocystitis; F32.A Depression, unspecified; L40.8 Other psoriasis; I49.3 Ventricular premature depolarization; N40.0 Benign prostatic hyperplasia without lower urinary tract symptoms; E78.00 Pure hypercholesterolemia, unspecified; E03.9 Hypothyroidism, unspecified; Z85.820 Personal history of malignant melanoma of skin; Z79.84 Long term (current) use of oral hypoglycemic drugs; Z79.890 Hormone replacement therapy; Z79.4 Long term (current) use of insulin; Z79.899 Other long term (current) drug therapy; Z11.52 Encounter for screening for COVID-19
CPT/HCPCS: 74176; 80048; 80053; 81003; 81015; 82962; 83036; 83605; 84132; 85025; 85027; 87040; 87086; 87088; 87186; 87502; 87811; 93005; 96361; 96374; 99285

== ENCOUNTER → 2025-02-24 14:53 | Outpatient (REF) | payer MEDICARE, BC, SELFPAY | LOC: RAD 14:53 | PROVIDERS: ATTENDING PHYSICIAN Specialist; FAMILY PHYSICIAN Family Medicine | DX: R31.0 Gross hematuria (principal); N40.1 Benign prostatic hyperplasia with lower urinary tract symptoms | CPT/HCPCS: 76770 ==

== ENCOUNTER 2025-03-03 22:51 | Inpatient (IN) | payer MEDICARE, BC, SELFPAY ==
[2025-03-03 19:52] VITALS: BP 144/66
[2025-03-03 20:15] LABS: Urine Character Clear (Clear)
[2025-03-03 20:23] LABS: Urine Red Blood Cell 0-2 /HPF (0-2); Urine Squamous Cell 0-2 /LPF (Few)
[2025-03-03] MEDS: TYLENOL 650 MG PO (20:27)
--- NOTE | 2025-03-03 21:00 | ED.GENMED ---
History of Present Illness
General
Chief Complaint: Urinary Symptoms
Source: patient, records and spouse
Exam Limitations: none
Time Seen by Provider: 03/03/25 20:37
Nursing documentation reviewed up to this point in time: agreed with
History of Present Illness
History of Present Illness:
69-year-old male diabetic large prostate with a recent with a UTI finished antibiotics is immunized for flu due for COVID get fever chills urinary frequency fatigue, superficial scratch on his leg that she got after getting up from the toilet, that
happened today, feels similar to when he was admitted with a UTI
Past History
Past History
ED Past Medical History: IDDM, Psychiatric (Depression) and Other (Psoriasis)
ED Past Surgical History: None
Social History
Tobacco: Non-smoker
Alcohol: None
Drug: None
Personal:
Living: with family
Employment: Retired
Review of Systems
Review of Systems
All Other Systems: Not applicable
Constitutional: Reports fever, fatigue and chills
EENT: Reports no symptoms
Respiratory: Reports no symptoms
ABD/GI: Denies abdominal pain or diarrhea
: Reports dysuria and urgency
Phy Exam
Physical Exam
Physical Exam:
Physical Exam
General: 69-year-old male febrile
Neck: Lips are dry
Heart: Tach7
Lungs: no acute respiratory distress. clear bilaterally
Abdomen: Not tender
Neuro: alert and oriented. no focal neurological deficits
Skin: no rash
Psychiatric: well kept. interactive and cooperative
Extremities: no edema.
Sepsis
Sepsis Screening
Sepsis Assessment: Sepsis
Sepsis Screen
Sepsis Screen: Sepsis
Date: 03/03/25
Time: 23:00
Course
Orders/Labs/Results
Orders:
Orders
03/03/25 20:01
Electrocardiogram (*1) Urgent
Reason for Study: Other
Other Reason for Exam: Possible Sepsis
Cardiac Monitoring- Treatment ONCE
EKG- Treatment ONCE
IV Insert/Care/Rem.- Treatment PRN
Straight cath- Treatment ONCE
CR Chest - 2 Views Urgent
Comment:
Reason For Exam: suspected infection
O2 Therapy [RESP] Urgent
Titrate/Wean O2 to maintain O2 sat greater than (%): 93
Special Instructions: TO MAINTAIN CONTINUOUS O2 SATS > OR = 93%
Pulse Ox/cont/shift [RESP] Urgent
Quantity: 1
Special Instructions: CONTINUOUS
03/03/25 20:07
Urinalysis Reflex To Culture Urgent
Date Specimen was Collected: 03/03/25
Time Specimen was Collected: 20:01
Urine Microscopic Reflex Cult Urgent
Urine Culture Urgent
BENJAMIN Source: U
Specimen Description:
Date Specimen was Collected: 03/03/25
Time Specimen was Collected: 20:01
03/03/25 20:17
Acetaminophen [Tylenol] 650 mg .ROUTE .STK-MED ONE
03/03/25 20:26
Acetaminophen [Tylenol] 650 mg PO NOW STA
03/03/25 21:00
0.9% Sodium Chloride 1000 ml [Nss] 2,000 ml IV BOLUS
03/03/25 21:07
COVID-19 Antigen Urgent
Source: Nasal Swab
Complete Blood Count/With Diff Urgent
Comprehensive Metabolic Panel Urgent
Lactic Acid Q4H
Comment: ON ICE, CANCEL 2ND ORDER IF FIRST LACTIC ACID LEVEL <2
Blood Culture Q20M
BENJAMIN Source: Blood/Venous
Specimen Description:
Comment: Urgent from separate sites. If patient screens positive for possible sepsis
Blood Culture Q20M
BENJAMIN Source: Blood/Venous
Specimen Description:
Comment: Urgent from separate sites. If patient screens positive for possible sepsis
Influenza A+B Rapid Molecular Urgent
BENJAMIN Source: Nasal Swab
Specimen Description:
03/03/25 21:39
CefTRIAXone [Rocephin] 1,000 mg IV NOW STA
03/03/25 22:09
Add On- LAB Urgent
Tests Added?: urine culture
03/03/25 22:30
Admit/Transfer Patient As Directed
Co-Sign Provider:
Level of Care: Inpatient admission
Assign to:: Medical/Surgical
Physician / Group: kevin
Diagnosis: sepsis with hypotension due to uti
Reason for Hospitalization: sepsis
Expected length of stay greater than two midnights?: Yes
ELOS- Estimated Length of Stay in days: 2
I certify the patient meets the requirements for IP care: Yes
Piperacillin/Tazo 4.5 Gram [Zosyn] 4.5 gram in 100 ml IV NOW
03/03/25 22:31
PRN Pain Medication Management As Directed
May give lesser potent ordered pain med per pt: Yes
preference::
Protocol:: Medication orders for pain may be administered in a
manner that supports deferring to patient preference
when the pt is:
- Requesting an ordered lesser potent pain medication.
Least to most potent pain medications are defined
as: acetaminophen < NSAID < tramadol < opioids
(morphine, oxycodone, hydromorphone).
- Requesting a lesser dose of the same medication IF
ORDERED.
- Requesting a less intrusive route of administration
if both routes are prescribed by the provider (PO <
IV).
03/03/25 22:32
Code Status As Directed
Resuscitation Status: Full Code
03/03/25 22:41
Ertapenem [Invanz] 1,000 mg 0.9% Sodium Chloride [Nss] 50 ml IV NOW
03/03/25 22:43
Piperacillin/Tazo 4.5 Gram [Zosyn] 4.5 gram in 100 ml .ROUTE .STK-MED
03/04/25 00:15
Lactic Acid Q4H
Comment: ON ICE, CANCEL 2ND ORDER IF FIRST LACTIC ACID LEVEL <2
Abnormal Lab Results
03/03/25 03/03/25
20:07 21:07
WBC 16.9 H 10^3/uL
(4.8-10.8)
RBC 4.55 L 10^6/uL
(4.70-6.10)
MPV 11.1 H fL
(7.4-10.4)
Abs Immat Gran (auto) 0.1 H 10^3/uL
(0-0.05)
Absolute Neuts (auto) 15.8 H 10^3/uL
(1.4-6.5)
Absolute Lymphs (auto) 0.3 L 10^3/uL
(1.2-3.4)
Absolute Monos (auto) 0.7 H 10^3/uL
(0.1-0.6)
Immature Gran % 0.7 H %
(0-0.5)
Neutrophils % 93.4 H %
(42.2-75.2)
Lymphocytes % 1.8 L %
(20.5-51.1)
Sodium 132 L mmol/L
(135-145)
Carbon Dioxide 21 L mmol/L
(22-30)
Glucose 213 H mg/dl
(70-99)
AST 16 L U/L
(17-59)
Total Protein 6.2 L g/dl
(6.3-8.2)
Urine Ketones 1+ A
(Negative)
Leukocyte Esterase Rfl 1+ A
(Negative)
Urine Bacteria (Reflex) Moderate A
(Negative)
Urine Albumin (Reflex) 2+ A
(Neg - Trace)
03/03/25 21:07
03/03/25 21:07
Vital Signs
Initial and Last Documented VS:
Initial Vital Signs
Temp Pulse Resp BP Pulse Ox
103 F H 101 20 144/66 95
03/03/25 19:52 03/03/25 19:52 03/03/25 19:52 03/03/25 19:52 03/03/25 19:52
Last Documented Vital Signs
Temp Pulse Resp BP Pulse Ox
103 F H 101 20 144/66 95
03/03/25 19:52 03/03/25 19:52 03/03/25 19:52 03/03/25 19:52 03/03/25 21:01
MDM/Problems Addressed
Differential Diagnosis Includes:
UTI prostatitis bacteremia influenza pneumonia
MDM/Problems Addressed:
Fever
Chronic conditions affecting care:
Diabetes large prostate
Acute Exacerbation and/or Progression of Chronic Illness:
Diabetes large prostate
*Radiology
Radiology exam reviewed: preliminary read by ED provider
*Pulse Oximetry
SaO2: 95
Oxygen Mode of Delivery: Room air
Patient hypoxic: no
*Civil Engineering Professor Interpretation
Rate: normal
Interpretation: normal
Heart Rate: 100
Rhythm: sinus
*Critical Care Note
Total Time (30-74mins, 75-104mins- exclusive of procedures): Not Applicable
Update Note
Update Note:
Update labs noted, prior urine culture noted ESBL with some resistance though recently treated with ceftriaxone and Augmentin
Chest x-ray pending
ED Attending Note
-
Portions of this chart may have been created with voice recognition software.� Occasional wrong word or��sound alike� substitutions may have occurred due to the inherent limitations of voice recognition software.
Discharge Plan
Departure
Patient Disposition: Admit
Date of Disposition: 03/03/25
Time of Disposition: 22:10
Admit to: Telemetry
Presentation/result/management discussed w/ accepting MD/DO: Hospitalist
Patient with high blood pressure during this ER visit?: No
Condition: Fair
Discharge Problem:
Acute UTI, Fever, Diabetes, Bacteremia
Interventions
Interventions:
*Risk Screen - Suicide Last Done: 03/03/25 19:52
*General Assessment Last Done: 03/03/25 19:52
*Neglect/Abuse Screening Last Done: 03/03/25 19:52
*ED- Fall Risk Assessment Last Done: 03/03/25 19:52
*ED COVID-19 Vaccine History Last Done: 03/03/25 19:52
*ED Influenza Vaccine History Last Done: 03/03/25 19:52
ED-Male Genitourinary Assessment Last Done: 03/03/25 20:25
[2025-03-03] MEDS: NSS 2000 IV (21:08)
[2025-03-03 21:36] LABS: Hematocrit 39.5 % (39.0-52.0); Hemoglobin 13.5 g/dL (13.0-18.0); Mean Corp Hgb Conc. 34.2 g/dL (33.0-37.0); Mean Corpuscular Volume 86.8 fL (80.0-94.0); Nucleated Red Blood Cells % 0 % (-); Platelet Count 206 10^3/uL (130-400); Red Cell Dist. Width 13.7 % (11.5-14.5)
[2025-03-03 21:49] LABS: ALT (SGPT) 44 U/L (0-50); AST (SGOT) 16 U/L (17-59); Albumin 3.5 g/dl (3.5-5.0); Alkaline Phosphatase 95 U/L (38-126); Blood Urea Nitrogen 13 mg/dl (9-20); Calcium 8.7 mg/dl (8.4-10.2); Carbon Dioxide 21 mmol/L (22-30); Chloride 103 mmol/L (98-107); Glucose 213 mg/dl (70-99); Potassium 4.1 mmol/L (3.5-5.1); Sodium 132 mmol/L (135-145); Total Protein 6.2 g/dl (6.3-8.2); eGFR > 60.00
[2025-03-03 22:04] LABS: COVID-19 Antigen Negative (Negative)
--- NOTE | 2025-03-03 22:09 | HPS.HSE ---
Family Physician
-
Family Physician: Emil Brown
Chief Complaint
-
Urinary symptoms
History of Present Illness
This is a 69-year-old male 69-year-old male with past medical history of primary biliary cholangitis, diabetes and BPH, recently admitted for sepsis secondary to cystitis and status post total IV ceftriaxone with completion of antibiotic course with
Augmentin on February 24 now presenting to the emergency medicine 1 week later with complaints of shivering urinary frequency and nausea and weakness.
Patient was admitted to the hospital recently a week urinary incontinence fever weakness and was found to have a urinary tract infection. PT grew E. coli that was generally resistant but sensitive to Augmentin. He was initially treated with
ceftriaxone and then transition to Augmentin to complete the course. Patient had a CT scan which showed prostatomegaly but no other obstructive uropathy. He was started on tamsulosin and finasteride. Farxiga was discontinued. Patient reports no
symptoms up until suddenly today after waking up. He noted feeling weak. He had fevers. When he went to use the bathroom he was shaking and he was incontinent. He actually denied dysuria at this time. He denies any flank pain. He denies any
pelvic pain. He had 1 episode of nausea and vomiting. He also 1-episode of 1 loose bowel movement and he took a dose of Imodium. He denied any antecedent diarrhea. He denies any cough. He denies any runny nose, sore throat, shortness of breath
or chest pain or orthopnea. He denies any rash. He denies any joint swelling.
In the emergency department he was febrile to 103.1. Blood pressure was 144/60 with a pulse rate of 101 and was satting 95% on room air. His chest x-ray now shows no acute infiltrates. ECG shows a normal sinus rhythm at a rate of 99 and no acute
ST or T wave changes. Small amplitude and waves.
White count was 16.9 hemoglobin and platelets were normal. Electrolytes BUN/creatinine were mostly unremarkable. Glucose was normal.
UA is equivocal with moderate bacteria, few WBCs and 1+ leukocyte esterase.
Medical History
Past Medical History
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
Past Surgical History: Reports Other (Skin resection for melanoma 1 year ago)
Social History
Tobacco: Non-smoker
Alcohol: Occasional
Drug: None
Personal:
Living: With Family
Employment: Retired
Family History
Family History: Not pertinent
Allergies / Home Medications
Allergies reflects when Allergies were last updated in [employer].
Home Medications with original date entered in [employer]
Allergy/Medication List:
Allergies
Allergy/AdvReac Type Severity Reaction Status Date / Time
No Known Allergies Allergy Verified 03/03/25 19:51
Home Medications
atorvastatin 10 mg tablet 10 mg PO DAILY cholesterol 02/16/25
dapagliflozin propanediol 10 mg tablet (Farxiga) 10 mg PO DAILY Diabetes 02/16/25
Held on 02/18/25. Instructions: Held due to concerns increase risk urinary tract infections and urinary frequency. Follow up with primary care provider and/or endocrinology to determine when safe to resume, if necessary to resume, and/or if
alternative agent is needed instead.
diltiazem HCl 120 mg capsule,extended release 12 hr 120 mg PO BID Blood Pressure 02/16/25
duloxetine 60 mg capsule,delayed release 60 mg PO DAILY depression/anxiety 02/16/25
flecainide 150 mg tablet 150 mg PO BID Arrhythmia 02/16/25
insulin NPH isoph U-100 human 100 unit/mL (3 mL) subcutaneous pen (Novolin N FlexPen) 10 unit SC BID Diabetes 02/16/25
insulin aspart U-100 100 unit/mL (3 mL) subcutaneous pen (Novolog FlexPen U-100 Insulin aspart) 10 unit SC BID Diabetes 02/16/25
levothyroxine 175 mcg tablet (Synthroid) 175 mcg PO DAILY Thyroid 02/16/25
metformin 500 mg tablet 500 mg PO DAILY Diabetes 02/16/25
tamsulosin 0.4 mg capsule 0.4 mg PO HS Urinary Issue 02/16/25
Saccharomyces boulardii 250 mg capsule 250 mg PO BID #13 caps 02/18/25
amoxicillin 875 mg-potassium clavulanate 125 mg tablet 1 tab PO Q12 #13 tabs 02/18/25
finasteride 5 mg tablet 5 mg PO DAILY #30 tabs 02/18/25
Review of Systems
-
Constitutional: Reports Chills
EENT: Reports No Symptoms
Respiratory: Reports No Symptoms
Cardiac: Reports No Symptoms
Abdomen/GI: Reports Nausea
: Reports Dysuria and Frequency
Musculoskeletal: Reports No Symptoms
Skin: Reports No Symptoms
Neurological: Reports Weakness
Endocrine: Reports No Symptoms
Hematologic/Lymphatic: Reports No Symptoms
Psych: Reports No Symptoms
Physical Exam
Vital Signs
Vital Signs
Temp Pulse Resp BP Pulse Ox
103 F H 101 20 144/66 95
03/03/25 19:52 03/03/25 19:52 03/03/25 19:52 03/03/25 19:52 03/03/25 21:01
Physical Exam
General: Well Developed, Well Nourished and No Apparent Distress
HEENT: NormoCephalic, Moist mucous membranes and Atraumatic
Respiratory: Clear
Cardiac: S1/S2 and Regular Rhythm; No Murmur or Rub
GI: Soft, Non Tender, Non Distended and Normal Bowel Sounds; No Organomegaly
Rectal: Deferred by Provider
Musculoskeletal: No Clubbing, No Cyanosis and No Edema
Skin: No Rash
Neuro: Nonfocal/grossly intact
Laboratory Results
-
03/03/25 21:07
03/03/25 21:07
Laboratory Results
Lactic Acid 1.0 mmol/L (0.7-2.0) 03/03/25 21:07
Total Bilirubin 0.6 mg/dl (0.2-1.3) 03/03/25 21:07
AST 16 U/L (17-59) L 03/03/25 21:07
ALT 44 U/L (0-50) 03/03/25 21:07
Alkaline Phosphatase 95 U/L (38-126) 03/03/25 21:07
Data Reviewed
-
Diagnostic Radiology: Image Personally Visualized and interpreted
Lab Data: Labs Reviewed by me
Old Records: Reviewed
Impression/Plan
-
IMPRESSION:
69-year-old with a history of BPH, PVCs, hyperlipidemia, insulin-dependent diabetes, recently admitted for first time with a urinary tract infection and sepsis with E. coli infection at that time that is sensitive to Augmentin but resistant to
ceftriaxone was CT scan that showed prostatomegaly without any other signs of obstruction and he was started on his tamsulosin with finasteride returning to the emergency department with acute episode of weakness fever incontinence. WBC 16.9, UA
again positive but not floridly so. Chest x-ray is clear. Flu and COVID test are negative
PLAN:
Sepsis with hypotension secondary to Recurrent cystitis- MAP < 70,
- admit to med/surg
- Blood and urine culture sent
- Will bolus with crystalloids 30 cc per kg
- Start Ertapenem based on recent cultures
- Hold antihypertensives.
- ID consult
BPH
- continue flomax and proscar
- bladder scan for pvr
- recent u/s negative for obstructive uropathy
PVCs
-Continue flecainide 150 mg p.o. twice daily
HTN
- hold diltiazem until bp stable in am
Diabetes
-Hold metformin
-Continue insulin 70/30 mixture at 10 units twice daily AC
-Sliding scale insulin
Hypothyroid
-Continue levothyroxine 175 mcg's daily
DVT prophylaxis�Lovenox subcu
CODE STATUS�full code
[2025-03-03] MEDS: ROCEPHIN 1000 MG IV (22:11)
[2025-03-03 23:00] VITALS: BP 113/58
[2025-03-03] MEDS: INVANZ 60 MG IV (23:17)
[2025-03-03] MEDS: NSS 500 IV (23:41)
--- NOTE | 2025-03-04 00:30 | TRANSFER ---
Pt arrived from ED by stretcher. Able to ambulate into room. Alert and oriented x 3. VSS. Call casiano within reach. Started on NSS @ 100mL/hr. Will continue to monitor.
[2025-03-04 00:37] VITALS: BP 109/50; BMI 26.1
[2025-03-04] MEDS: NSS 1000 IV (00:49)
[2025-03-04] MEDS: SYNTHROID 175 MCG PO (05:00)
[2025-03-04 06:33] LABS: Hematocrit 35.7 % (39.0-52.0); Hemoglobin 12.2 g/dL (13.0-18.0); Mean Corp Hgb Conc. 34.2 g/dL (33.0-37.0); Mean Corpuscular Volume 89.9 fL (80.0-94.0); Platelet Count 173 10^3/uL (130-400); Red Cell Dist. Width 13.6 % (11.5-14.5)
[2025-03-04 07:12] LABS: Blood Urea Nitrogen 12 mg/dl (9-20); Calcium 8.1 mg/dl (8.4-10.2); Carbon Dioxide 24 mmol/L (22-30); Chloride 107 mmol/L (98-107); Estimated Creatinine Clearance 84 ml/min; Glucose 152 mg/dl (70-99); Potassium 4.3 mmol/L (3.5-5.1); Sodium 135 mmol/L (135-145); eGFR > 60.00
[2025-03-04 07:30] VITALS: BP 123/52
--- NOTE | 2025-03-04 07:41 | W.PN.HOSP.TC ---
Today's Communication/Plan
-
IV Ertapenem
ID consult
Assessment / Plan
Assessment / Plan
69-year-old with a history of BPH, PVCs, hyperlipidemia, insulin-dependent diabetes, recently admitted for for ESBL UTI treated with Augmentin; CT scan that showed prostatomegaly without any other signs of obstruction represents to the emergency
department with acute episode of weakness, fever, and incontinence. WBC 16.9. Flu/Covid negative. IV Ertapenem initiated given prior culture with ESBL.
PLAN:
Sepsis with hypotension secondary to Recurrent cystitis- MAP < 70,
- admitted to med/surg
- Blood and urine culture sent
- s/p appropriate IVF, OK to stop after this bag
- SBP stable overnight
- Start Ertapenem based on recent cultures
- Hold antihypertensives.
- ID consult
BPH
- continue flomax and proscar
- bladder scan for pvr
- recent u/s negative for obstructive uropathy
PVCs
-Continue flecainide 150 mg p.o. twice daily
HTN
- hold diltiazem until bp stable in am
Diabetes
-Hold metformin
-Continue insulin 70/30 mixture at 10 units twice daily AC
-Sliding scale insulin
Hypothyroid
-Continue levothyroxine 175 mcg's daily
DVT prophylaxis�Lovenox subcu
CODE STATUS�full code
51 minutes spent on patient care
Anticipated Discharge: 24 - 48 hours
Subjective/Interval History
-
Date of Service: March 04, 2025
feels fatigued
no back or suprapubic pain
incontinence improving
overall feeling better
Objective Data
-
Labs:
Laboratory Results
03/03/25 03/04/25
21:07 05:57
WBC 16.9 H 12.1 H
Hgb 13.5 12.2 L
Hct 39.5 35.7 L
Plt Count 206 173
Sodium 132 L 135
Potassium 4.1 4.3
Chloride 103 107
Carbon Dioxide 21 L 24
BUN 13 12
Creatinine 0.8 0.9
Glucose 213 H 152 H
Calcium 8.7 8.1 L
Total Bilirubin 0.6
AST 16 L
ALT 44
Alkaline Phosphatase 95
Vital Signs:
Vital Signs
Temp Pulse Resp BP Pulse Ox
99.7 F 84 18 109/50 98
03/04/25 00:37 03/04/25 00:37 03/04/25 00:37 03/04/25 00:37 03/04/25 00:37
Review of Systems
-
History Source: Patient
All other systems: Reviewed and negative
Physical Exam
-
General: No Apparent Distress
HEENT: PERRLA
Respiratory: Clear to Auscultation; Negative Wheezes
Cardiac: Regular Rhythm and S1/S2
GI: Soft and Nontender
Genito-urinary: No Costovertebral Tender
Skin: Warm and Dry; Negative Rash
Neuro: AO x 3
Psych: Calm
Data Reviewed
-
Diagnostic Radiology: Report Reviewed by me
Labs: Labs Reviewed by me
[2025-03-04 08:04] LABS: Glucose - Point of Care 136 mg/dl (70-99)
[2025-03-04] MEDS: NOVOLOG FLEXPEN-LOW RESISTANCE SC (08:33)
[2025-03-04] MEDS: LIPITOR 10 MG PO (08:44)
[2025-03-04] MEDS: FLORASTOR 250 MG PO ×2 (08:44→14:29)
[2025-03-04] MEDS: TAMBOCOR 150 MG PO ×2 (08:44→20:56)
[2025-03-04] MEDS: CYMBALTA DELAYED RELEASE 60 MG PO (08:44)
[2025-03-04] MEDS: PROSCAR 5 MG PO (08:44)
--- NOTE | 2025-03-04 10:04 | CM ---
Addendum entered by Marlee Siegel 03/04/25 10:35:
Pt started on IV Ertepenem; ID consult pending.
Plan: Watch for home IV abx needs.
Original Note:
CM met with patient to complete IA. Dusty lives with his and 24 y/o son in a 2 story home with 3 entry steps. Powder room on the first floor, bedroom and full bath on the 2nd floor.
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 Has a CPAP that he uses at home.
Discharge plan: Home with no needs.
PCP: Emil Brown
Pharm: [facility]
--- NOTE | 2025-03-04 11:31 | CON.ID ---
Consultation
-
Date/Time Consultation Requested: March 04, 2025 0027
Date/Time Consultation Performed: March 04, 2025 1130
Requesting Provider: Dr. Pearson
Performing Provider: Dr. Teresa Roa
Reason for Consultation: ESBL UTI
Chief Complaint / Past History
Chief Complaint
Fever, chills, urine symptoms
History of Present Illness
69-year-old male with history of diabetes mellitus, primary biliary cholangitis, BPH, who was recently admitted to the hospital from with fever, leukocytosis and found to have UTI and very enlarged prostate. Urine culture at that time
grew ESBL�E. coli. He was on ceftriaxone and discharged on Augmentin. He reports symptoms resolved. However, yesterday he started feeling unwell with weakness. He developed rigors. His took his temperature and he was febrile. He had
difficulty getting up from the toilet due to weakness and dizziness. Patient complaining of urine incontinence. No flank pain. c/o diarrhea yesterday, 1 BM this am. In the ER temperature 103, white count 16.9. He was started on ertapenem.
Patient reports no history of recurrent UTI. He we will see urology regarding the enlarged prostate. He does feel like sometimes he is unable to empty his bladder fully.
Past History
Additional Past Medical History:
DM
dyslipidemia
primary biliary cholangitis
Hypothyroidism
PVC's
BPH
Skin melanoma excision
Allergy History:
No Known Allergies Allergy (Verified 03/03/25 19:51)
Medications Reviewed: Yes
Current Antibiotics:
Ertapenem d2
Social History
Tobacco: Non-Smoker
Alcohol: Occasional
Drug: None
Personal:
Living: With Family
Family History
Family History: Not Pertinent
Review of Systems
Review of Systems
General: Fever and Chills
Cardiovascular: Negative Chest Pain
Respiratory: Negative Dyspnea or Cough
Gasteroenterology: Diarrhea (1 BM this am); Negative Nausea or Vomiting
Genital / Urological: Negative Hematuria or Flank Pain
Endocrine: Weakness
All systems: All other systems were reviewed and were negative
Vital Signs
Temp Pulse Resp BP Pulse Ox
97.8 F 81 16 123/52 98
03/04/25 10:18 03/04/25 07:30 03/04/25 07:30 03/04/25 07:30 03/04/25 07:30
Physical Exam
Physical Exam
Constitutional: No Acute Distress and Comfortable
Eyes: Sclera Anicteric
Cardiovascular: Regular Rate and S1/S2
Pulmonary: Clear
Gastrointestinal: Soft, Non Tender, Non Distended and Normal Bowel Sounds
Extremities: Negative Edema
Neurological: AO x 3
Lab / Diagnostic Study Results
03/04/25 05:57
03/04/25 05:57
Abs Immat Gran (auto) 0.1 10^3/uL (0-0.05) H 03/03/25 21:07
Absolute Neuts (auto) 15.8 10^3/uL (1.4-6.5) H 03/03/25 21:07
Absolute Lymphs (auto) 0.3 10^3/uL (1.2-3.4) L 03/03/25 21:07
Absolute Monos (auto) 0.7 10^3/uL (0.1-0.6) H 03/03/25 21:07
Absolute Basos (auto) 0.0 10^3/uL (0-0.2) 03/03/25 21:07
Immature Gran % 0.7 % (0-0.5) H 03/03/25 21:07
Neutrophils % 93.4 % (42.2-75.2) H 03/03/25 21:07
Lymphocytes % 1.8 % (20.5-51.1) L 03/03/25 21:07
Monocytes % 3.8 % (1.7-9.3) 03/03/25 21:07
Eosinophils % 0.1 % (0-6) 03/03/25 21:07
Basophils % 0.2 % (0-2) 03/03/25 21:07
Lactic Acid Cancelled 03/04/25 00:15
Ur Squamous Epith Cells 0-2 /LPF (Few) 03/03/25 20:07
Microbiology Results
Micro:
03/03/25 21:07 Influenza Types A & B (VALERIE) - Final
Nasal Swab Negative for Influenza A & B, NAAT
Negative results must be combined with clinical observations
and patient history.
Nucleic Acid Amplification test (NAAT)performed on the
[employer] platform.
03/03/25 21:07 Blood Culture - Pending
Blood/Venous
03/03/25 21:07 Blood Culture - Pending
Blood/Venous
03/03/25 20:07 Urine Culture - Pending
Urine
03/03/25 CXR: No acute cardiopulmonary process.
Assessment / Plan
# Complicated ESBL-Ecoli UTI
recent ceftriaxone then Augmentin are not effective against ESBL
# Fever
# Leukocytosis
# Significant BPH
- Continue Ertapenem 1g IV q24 x 14 days through
- Place midline tomorrow, if Bcx's neg
- Infusion sheet submitted to case specialist.
- Trend wbc and temps.
- DC daily duloxetine. If diarrhea persists, check C. diff
Care Review
Plan reviewed with: Physician (Dr. Bajwa)
[2025-03-04 11:59] LABS: Glucose - Point of Care 167 mg/dl (70-99)
[2025-03-04 13:41] LABS: Magnesium 1.6 mg/dl (1.6-2.3)
[2025-03-04] MEDS: VISBIOME 2 CAP PO (14:09)
[2025-03-04] MEDS: NOVOLOG FLEXPEN-LOW RESISTANCE 1 UNITS SC (14:24)
[2025-03-04 15:09] VITALS: BP 125/70
--- NOTE | 2025-03-04 15:54 | CM ---
IV infusion will be needed at discharge. Ertapenem 1gm IV q24. Await midline placement and will send referral to [facility].
[2025-03-04 17:14] LABS: Glucose - Point of Care 224 mg/dl (70-99)
[2025-03-04] MEDS: LOVENOX 40 MG SC (17:48)
[2025-03-04] MEDS: NOVOLOG FLEXPEN-LOW RESISTANCE 2 UNITS SC (18:49)
[2025-03-04] MEDS: HUMULIN N KWIKPEN 5 UNITS SC (18:49)
[2025-03-04] MEDS: CARDIZEM SR 120 MG PO (20:59)
[2025-03-04 21:05] LABS: Glucose - Point of Care 141 mg/dl (70-99)
[2025-03-04] MEDS: INVANZ 60 MG IV (21:17)
[2025-03-04] MEDS: FLOMAX 0.4 MG PO (21:17)
[2025-03-04 23:00] VITALS: BP 119/74
[2025-03-05] MEDS: SYNTHROID 175 MCG PO (05:08)
[2025-03-05 05:26] LABS: Hematocrit 37.2 % (39.0-52.0); Hemoglobin 12.3 g/dL (13.0-18.0); Mean Corp Hgb Conc. 33.1 g/dL (33.0-37.0); Mean Corpuscular Volume 92.5 fL (80.0-94.0); Nucleated Red Blood Cells % 0 % (-); Platelet Count 157 10^3/uL (130-400); Red Cell Dist. Width 13.5 % (11.5-14.5)
[2025-03-05 06:57] LABS: Blood Urea Nitrogen 13 mg/dl (9-20); Calcium 8.3 mg/dl (8.4-10.2); Carbon Dioxide 23 mmol/L (22-30); Chloride 105 mmol/L (98-107); Estimated Creatinine Clearance 94 ml/min; Glucose 119 mg/dl (70-99); Potassium 4.0 mmol/L (3.5-5.1); Sodium 134 mmol/L (135-145); eGFR > 60.00
[2025-03-05 07:50] VITALS: BP 118/60
[2025-03-05 08:06] LABS: Glucose - Point of Care 121 mg/dl (70-99)
[2025-03-05] MEDS: NOVOLOG FLEXPEN-LOW RESISTANCE SC (08:07)
[2025-03-05] MEDS: LIPITOR 10 MG PO (08:46)
[2025-03-05] MEDS: PROSCAR 5 MG PO (08:47)
[2025-03-05] MEDS: VISBIOME 2 CAP PO (08:47)
[2025-03-05] MEDS: FLORASTOR 250 MG PO (08:47)
[2025-03-05] MEDS: CARDIZEM SR 120 MG PO (08:47)
[2025-03-05] MEDS: TAMBOCOR 150 MG PO (08:47)
[2025-03-05] MEDS: HUMULIN N KWIKPEN 5 UNITS SC (08:48)
--- NOTE | 2025-03-05 08:59 | W.PN.HOSP.TC ---
Today's Communication/Plan
-
CM consult for home infusion therapy
midline placement
possible DC later today versus tomorrow morning (once outpatient infusion set up )
Assessment / Plan
Assessment / Plan
69-year-old with a history of BPH, PVCs, hyperlipidemia, insulin-dependent diabetes, recently admitted for for ESBL UTI treated with Augmentin; CT scan that showed prostatomegaly without any other signs of obstruction represents to the emergency
department with acute episode of weakness, fever, and incontinence. WBC 16.9. Flu/Covid negative. IV Ertapenem initiated given prior culture with ESBL.
PLAN:
Sepsis with hypotension secondary to Recurrent cystitis- MAP < 70,
- admitted to med/surg
- Blood and urine cultures pending; blood neg nearly 48 hours
- s/p appropriate IVF
- SBP stable; now afebrile over 24 hours
- IV Ertapenem --> appreciate ID, midline placement today with home infusion therapy
BPH
- continue flomax and proscar
- bladder scan for pvr
- recent u/s negative for obstructive uropathy
- patient has an appointment with Urology beginning of April
PVCs
-Continue flecainide 150 mg p.o. twice daily
HTN
-Diltiazem resumed
Diabetes
-A1c 7.9%
-Hold metformin - resume on DC
-lower dose NPH insulin
-Sliding scale insulin
Hypothyroid
-Continue levothyroxine 175 mcg's daily
DVT prophylaxis�Lovenox subcu
CODE STATUS�full code
51 minutes spent on patient care
Anticipated Discharge: Within 24 hours
Subjective/Interval History
-
Date of Service: March 05, 2025
feeling a lot better
asking about when he can go home
Objective Data
-
Labs:
Laboratory Results
03/05/25
05:08
WBC 5.7
Hgb 12.3 L
Hct 37.2 L
Plt Count 157
Sodium 134 L
Potassium 4.0
Chloride 105
Carbon Dioxide 23
BUN 13
Creatinine 0.8
Glucose 119 H
Calcium 8.3 L
Vital Signs:
Vital Signs
Temp Pulse Resp BP Pulse Ox
98.1 F 57 16 118/60 98
03/05/25 07:50 03/05/25 07:50 03/05/25 07:50 03/05/25 07:50 03/05/25 07:50
I&O
03/04/25 03/05/25 03/06/25
06:59 06:59 06:59
Intake Total 960 / 960
Balance 960 / 960
Review of Systems
-
History Source: Patient
All other systems: Reviewed and negative
Physical Exam
-
General: No Apparent Distress
HEENT: PERRLA
Respiratory: Clear to Auscultation; Negative Wheezes
Cardiac: Regular Rhythm and S1/S2
GI: Soft and Nontender
Genito-urinary: No Costovertebral Tender
Skin: Warm and Dry; Negative Rash
Neuro: AO x 3
Psych: Calm
Data Reviewed
-
Diagnostic Radiology: Report Reviewed by me
Labs: Labs Reviewed by me
[2025-03-05] MEDS: MAGNESIUM SULFATE 50 IV (09:05)
--- NOTE | 2025-03-05 10:25 | CM ---
Addendum entered by Christi Shoemaker 03/05/25 15:57:
patient teach completed
patient discharged
transported
Addendum entered by Christi Shoemaker 03/05/25 11:47:
faxed midline information to Gertrudis at [facility]
Original Note:
CM spoke with Miriam at [facility]
benefit check was completed- Ertapenem 1g IV q24 end 03/16
nsg & drug covered-$140/wk for supplies
will update patient
Miriam from [facility] to do onsite teach today
Patient for midline placement today
Updated Gertrudis at [facility]-referral in [facility]
IMM explained & signed. In chart
PLAN: Home with [facility], IV antibiotic
[facility] Fax #: [phone]
[facility] fax #: [phone]
[2025-03-05 11:06] LABS: Glucose - Point of Care 172 mg/dl (70-99)
--- NOTE | 2025-03-05 11:56 | W.PN.ID1 ---
Date of Service
Date of Service: March 05, 2025
Today's Communication
DC home when outpt IV abx set up.
Assessment / Plan
# Complicated ESBL-Ecoli UTI
recent ceftriaxone then Augmentin are not effective against ESBL
# Fever - resolved
# Leukocytosis - resolved
# Significant BPH
-blood cx's neg to date.
- Continue Ertapenem 1g IV q24 x 14 days through 03/16/2025.
- Can place midline today.
- Infusion sheet submitted to registered nurse hh case manager 03/04.
- DC home when outpt IV abx set up.
Chief Complaint
-: UTI
Subjective / Review of Systems
Feels much improved. No further incontinence.
No diarrhea.
Vital Signs / Physical Exam
Vital Signs
Vital Signs
Temp Pulse Resp BP Pulse Ox
98.1 F 57 16 118/60 98
03/05/25 07:50 03/05/25 07:50 03/05/25 07:50 03/05/25 07:50 03/05/25 07:50
Physical Exam
Constitutional: No Acute Distress and Comfortable
Pulmonary: Clear
Gastrointestinal: Soft, Non Tender, Non Distended and Normal Bowel Sounds
Genito-Urinary: Negative CVA Tenderness
Extremities: Negative Edema
Neurological: AO x 3
Objective Data
Lab Data
Lab Results
03/05/25 05:08
03/05/25 05:08
Estimated Creat Clear 94 ml/min 03/05/25 05:08
Lactic Acid Cancelled 03/04/25 00:15
Total Bilirubin 0.6 mg/dl (0.2-1.3) 03/03/25 21:07
AST 16 U/L (17-59) L 03/03/25 21:07
ALT 44 U/L (0-50) 03/03/25 21:07
Alkaline Phosphatase 95 U/L (38-126) 03/03/25 21:07
Most recent labs reviewed.
Micro Results:
03/03/25 20:07 Urine Culture - Final
Urine
03/03/25 21:07 Blood Culture - Preliminary
Blood/Venous No Growth in 24 hours- Final report to follow
03/03/25 21:07 Blood Culture - Preliminary
Blood/Venous No Growth in 24 hours- Final report to follow
03/03/25 21:07 Influenza Types A & B (VALERIE) - Final
Nasal Swab Negative for Influenza A & B, NAAT
Negative results must be combined with clinical observations
and patient history.
Nucleic Acid Amplification test (NAAT)performed on the
[employer] platform.
03/03/25 CXR: No acute cardiopulmonary process.
Care Review
Plan reviewed with: Physician (Dr. Bajwa.)
--- NOTE | 2025-03-05 12:43 | W.DCSUMMARY ---
Addendum entered and electronically signed by Charlotte Bajwa MD 03/05/25 13:32:
Patient noted to have a very large prostate last admission and has follow up with Urology scheduled.
Original Note:
Discharge Summary
Discharge Data
Date of Admission: 03/03/25
Date of Discharge: 03/05/25
-
Pending Results: No
Hospital Course
Discharging Physician : Dr. Charlotte Bajwa
Disposition : Home with Home Infusion Therapy
Primary care physician : Dr. Emil Brown
Principal Discharge diagnosis : ESBL Urinary Tract Infection
Hospital Course :
Mr. Dusty Brown is a 69 yo man with hx BPH, PVCs, hyperlipidemia, insulin-dependent diabetes, recently admitted for for ESBL UTI treated with Augmentin, represents to the emergency department with acute episode of weakness, fever, and
incontinence. He was found to have leukocytosis with WBC 16.9. He was readmitted for recurrent ESBL UTI. He was started on IV Ertapenem and admitted to medicine with ID consulting. Patient remained fever free x 24 hours prior to discharge with
resolution of leukocytosis. Blood cultures remained negative, midline was placed and he is discharged to complete a 14 week course of IV Ertapenem.
Time spent on discharge was 35 minutes.
Important imaging findings :
Procedure findings :
Discharge Plan
-
Patient Disposition: Home (Routine Discharge)
Discharge Diagnosis/Procedures: ESBL Urinary Tract Infection
Condition: Good
Diet: Regular and Diabetic, Carb Controlled
Activity: As tolerated
Driving Restrictions: As prior to admission
Bathing Restrictions: None
Referrals:
Emil Brown MD [Family Provider, Family Practice] - in less than 1 week
James Rosen MD [Active, Urology]
Teresa Roa MD [Active, Infectious Diseases]
Additional Discharge Medication Instructions: continue IV Ertapenem through 03/16/25
Stop Duloxetine as this may worsen diarrhea
Continue probiotics.
Prescriptions:
New
Ertapenem [Invanz] 1000 MG
0.9% Sodium Chloride [Nss] 50 ML
120 mls/hr IV Q24H
Ordered By: Charlotte Bajwa MD
Last Taken: 03/04/25 21:17 60 mls
Continued
metformin 500 mg tablet
500 mg PO DAILY
levothyroxine [Synthroid] 175 mcg tablet
175 mcg PO DAILY
flecainide 150 mg tablet
150 mg PO BID
atorvastatin 10 mg tablet
10 mg PO DAILY
diltiazem HCl 120 mg capsule,extended release 12 hr
120 mg PO BID
tamsulosin 0.4 mg capsule
0.4 mg PO DAILY
insulin aspart U-100 [Novolog FlexPen U-100 Insulin] 100 unit/mL (3 mL) Insulin Pen
10 unit SC BID@0730,1700
Rx Instructions:
in morning before meals and at night before meals per the patient
Saccharomyces boulardii 250 mg Capsule
250 mg PO BID Qty: 13 0RF
Rx Instructions:
OK to stop when off antibiotics.
finasteride 5 mg Tablet
5 mg PO DAILY Qty: 30 0RF
Mounjaro 15 mg/0.5 mL pen injector
15 mg SC CORDERO
Discontinued
duloxetine 60 mg capsule,delayed release(DR/EC)
60 mg PO DAILY
Novolin N FlexPen 100 unit/mL (3 mL) Insulin Pen
10 unit SC BID@0730,1700
Rx Instructions:
in the morning before meals and at night before meals per the pt
Discharge Date and Time
Print Language: CYMRO
--- NOTE | 2025-03-05 12:47 | W.DS.TRANS ---
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
-
Discharge Instructions:
Discharge Diagnosis/Procedures ESBL Urinary Tract Infection
Diet Regular,Diabetic, Carb Controlled
Activity As tolerated
Driving Restrictions As prior to admission
Bathing Restrictions None
Instructions:
Stand-Alone Forms:
Changes to Home Medications: Yes
Discharge Medications:
DC Medications w/original date entered in [employer]
atorvastatin 10 mg tablet 10 mg PO DAILY cholesterol 02/16/25
diltiazem HCl 120 mg capsule,extended release 12 hr 120 mg PO BID Blood Pressure 02/16/25
flecainide 150 mg tablet 150 mg PO BID Arrhythmia 02/16/25
insulin aspart U-100 100 unit/mL (3 mL) subcutaneous pen (Novolog FlexPen U-100 Insulin aspart) 10 unit SC BID@0730,1700 Diabetes 02/16/25
levothyroxine 175 mcg tablet (Synthroid) 175 mcg PO DAILY Thyroid 02/16/25
metformin 500 mg tablet 500 mg PO DAILY Diabetes 02/16/25
tamsulosin 0.4 mg capsule 0.4 mg PO DAILY Urinary Issue 02/16/25
Saccharomyces boulardii 250 mg capsule 250 mg PO BID #13 caps 02/18/25
finasteride 5 mg tablet 5 mg PO DAILY #30 tabs 02/18/25
Ertapenem [Invanz] 1,000 mg 120 mls/hr IV Q24H 03/05/25
tirzepatide 15 mg/0.5 mL subcutaneous pen injector (Mounjaro) 15 mg SC CORDERO Diabetes 03/05/25
Home Medication Changes
addition of IV Ertrapenem
Stop Duloxetine given AE diarrhea
Pending Results: No
[2025-03-05] MEDS: NOVOLOG FLEXPEN-LOW RESISTANCE 1 UNITS SC (13:07)
[2025-03-05] MEDS: INVANZ 60 MG IV (14:04)
[2025-03-05 15:15] VITALS: BP 127/63
== END 2025-03-05 15:31 | disposition home health service (06) | DRG 872 ==
LOC: 3 WEST ACU 22:51
PROVIDERS: ADMITTING PHYSICIAN Internal Medicine; ATTENDING PHYSICIAN Student in an Organized Health Care Education/Training Program; EMERGENCY PHYSICIAN Emergency Medicine; FAMILY PHYSICIAN Family Medicine
DX: A41.51 Sepsis due to Escherichia coli [E. coli] (principal); Z16.12 Extended spectrum beta lactamase (ESBL) resistance; N40.0 Benign prostatic hyperplasia without lower urinary tract symptoms; N30.90 Cystitis, unspecified without hematuria; I95.89 Other hypotension; I49.3 Ventricular premature depolarization; I10 Essential (primary) hypertension; E03.9 Hypothyroidism, unspecified; E11.9 Type 2 diabetes mellitus without complications; Z85.828 Personal history of other malignant neoplasm of skin; Z85.820 Personal history of malignant melanoma of skin; Z79.84 Long term (current) use of oral hypoglycemic drugs; Z79.4 Long term (current) use of insulin; Z79.890 Hormone replacement therapy; E78.00 Pure hypercholesterolemia, unspecified; Z11.52 Encounter for screening for COVID-19; B96.20 Unspecified Escherichia coli [E. coli] as the cause of diseases classified elsewhere
CPT/HCPCS: 71046; 80048; 80053; 81003; 81015; 82962; 83605; 83735; 85025; 85027; 87040; 87086; 87502; 87811; 93005; 96361; 96374; 99285; J1335

== ENCOUNTER 2025-03-16 07:02 | Outpatient (RCR) | payer MEDICARE, BC, SELFPAY ==
[2025-03-08] MEDS: INVANZ 60 MG IV (07:15)
[2025-03-08 07:22] VITALS: BP 129/63; BMI 26.1
[2025-03-09 07:29] VITALS: BP 116/65
[2025-03-09] MEDS: INVANZ 60 MG IV (07:30)
[2025-03-10 10:15] VITALS: BP 127/57
[2025-03-10 10:26] LABS: Hematocrit 39.3 % (39.0-52.0); Hemoglobin 13.2 g/dL (13.0-18.0); Mean Corp Hgb Conc. 33.6 g/dL (33.0-37.0); Mean Corpuscular Volume 88.7 fL (80.0-94.0); Platelet Count 229 10^3/uL (130-400); Red Cell Dist. Width 13.5 % (11.5-14.5)
[2025-03-10] MEDS: INVANZ 60 MG IV (10:26)
[2025-03-10 11:23] LABS: ALT (SGPT) 32 U/L (0-50); AST (SGOT) 20 U/L (17-59); Albumin 3.7 g/dl (3.5-5.0); Alkaline Phosphatase 84 U/L (38-126); Blood Urea Nitrogen 9 mg/dl (9-20); Calcium 9.1 mg/dl (8.4-10.2); Carbon Dioxide 23 mmol/L (22-30); Chloride 105 mmol/L (98-107); Estimated Creatinine Clearance 84 ml/min; Glucose 173 mg/dl (70-99); Potassium 4.7 mmol/L (3.5-5.1); Sodium 134 mmol/L (135-145); Total Protein 6.4 g/dl (6.3-8.2); eGFR > 60.00
[2025-03-11 08:43] VITALS: BP 119/65
[2025-03-11] MEDS: INVANZ 60 MG IV (08:57)
[2025-03-12 10:22] VITALS: BP 121/64
[2025-03-12] MEDS: INVANZ 60 MG IV (10:26)
[2025-03-12 11:24] VITALS: BP 122/60
[2025-03-13 13:50] VITALS: BP 117/61
[2025-03-13] MEDS: INVANZ 60 MG IV (13:58)
[2025-03-14 14:21] VITALS: BP 116/52
[2025-03-14] MEDS: INVANZ 60 MG IV (14:27)
[2025-03-15] MEDS: INVANZ 60 MG IV (07:29)
[2025-03-15 07:34] VITALS: BP 119/61
[2025-03-16] MEDS: INVANZ 60 MG IV (07:39)
[2025-03-16 07:46] VITALS: BP 111/65
--- NOTE | 2025-03-16 07:47 | EDRN ---
VAT RN notified that pt will be finished infusion at 0815 and needs midline discontinued.
== END 2025-04-06 23:59 | disposition home or self-care (01) ==
LOC: OID 07:02
PROVIDERS: ATTENDING PHYSICIAN Internal Medicine Infectious Disease; FAMILY PHYSICIAN Family Medicine
DX: N39.0 Urinary tract infection, site not specified (principal)
CPT/HCPCS: 36415; 80053; 85025; 96365; J1335